=== PATIENT | female | born 1990 | race Hispanic/Latino ===

== ENCOUNTER 2017-05-30 18:58 | Emergency (ER) | payer OTHER ==
[~2017-05-30] VITALS: Ht 170.2 cm; Wt 68.0 kg
[~2017-05-30 18:58] MED LIST: CYCLOBENZAPRINE10 M1 PO; CYMBALTA20 M1 PO; DELTASONE20 MG PO; TRAMADOL HCL50 M1 PO; ULTRAM50 M1 PO; XANAX0.25 M1 PO
--- NOTE | 2017-05-30 21:31 | ED GENERAL ADULT ---
History of Present Illness General Chief Complaint: General Adult Stated Complaint: LOCK JAW? Source: patient, old records Exam Limitations: no limitations Vital Signs & Intake/Output Vital Signs & Intake/Output Vital Signs Date Time Temp Pulse Resp B/P B/P Pulse O2 O2 Flow FiO2 Mean Ox Delivery Rate 05/30 2104 112 22 138/74 98 Room Air 05/30 1903 97.1 92 18 122/87 96 Room Air Allergies Coded Allergies: lidocaine (Mild, ITCHING 03/30/17) fentanyl (ANAPHYLAXIS 03/30/17) ketorolac (From TORADOL) (ANAPHYLAXIS 03/30/17) Reconcile Medications Alprazolam (Xanax) 0.25 MG TABLET 1 TAB PO DAILY NEEDED ANXIETY (Reported) Cyclobenzaprine HCl 10 MG TABLET 1 TAB PO QPM muscle strain Duloxetine Hydrochloride (Cymbalta) 20 MG CAPSULE.DR 1 CAP PO DAILY DEPRESSION (Reported) Methocarbamol (Robaxin-750) 750 MG TABLET 1 TAB PO TID PRN PAIN Prednisone (Deltasone) 20 MG TABLET 2 TAB PO DAILY JAW PAIN BEGIN TOMORROW Tramadol HCl (Ultram) 50 MG TABLET 1 TAB PO Q6P PRN PAIN Tramadol HCl (Ultram) 50 MG TABLET 1 TAB PO BIDP PRN jaw pain Tramadol HCl 50 MG TABLET 1 TAB PO BIDP PRN pain Triage Note: PT FROM HOME C/O "LOCK JAW" PER PT. PT STATES 1 HR PRIOR TO ARRIVAL PT WAS EATING AT HOME WHEN PTS JAW "LOCKED UP". PT ARRIVED TO ER CRYING, JAW OPEN WITH AN ICE PACK ON IT. PT DENIES ANY OTHER COMPLAINTS AT THIS TIME. PT SEEN IN ER 4+ TIMES WITHIN THE PAST 2 MONTHS FOR SAME THING. VSS. Triage Nurses Notes Reviewed? yes Onset: Abrupt Duration: minute(s): (30), constant, continues in ED, getting worse Timing: recent history Injury Environment: home Severity: moderate, severe Severity Numbers: 10 No Modifying Factors: none LMP (ages 10-50): unknown : No Patient currently breastfeeds: No HPI: 27-year-old female past medical history of TMJ anxiety fibromyalgia and lupus presents for evaluation of dislocated TMJ. Patient has been seen here multiple times with this over the past 4 months. She states that about 30 minutes ago she was eating she'll mature mouth wide when she suddenly felt her jaw pop out of place. She reports severe pain on the bilateral TMJs. There is no trauma. Patient has been seen here in the past and required sedation for this. She denies any shortness of breath difficulty swallowing drooling chest pain fever. She has not yet seen an oral surgeon but states that she has an appointment later this month. (Jude Jimenez) Past History Travel History Traveled to [place] past 21 day No Medical History Any Pertinent Medical History? see below for history Neurological: NONE EENT: NONE Cardiovascular: NONE Respiratory: NONE Gastrointestinal: NONE Hepatic: NONE Renal: nephrolithiasis Musculoskeletal: fibromyalgia, rheumatoid arthritis Psychiatric: anxiety Endocrine: LUPUS Blood Disorders: NONE Cancer(s): NONE COP WINDER/Reproductive: chlamydia Surgical History Surgical History: cholecystectomy, tubal ligation Psychosocial History What is your primary language Sudanese Tobacco Use: Current Daily Use Daily Tobacco Use Amount/Type: => 5 Cigarettes daily Family History Hx Contributory? No (Jude Jimenez) Review of Systems Review of Systems Constitutional: Reports: no symptoms. EENTM: Reports: no symptoms. Respiratory: Reports: no symptoms. Cardiovascular: Reports: no symptoms. GI: Reports: no symptoms. Genitourinary: Reports: no symptoms. Musculoskeletal: Reports: joint pain, joint swelling. Skin: Reports: no symptoms. Neurological/Psychological: Reports: anxiety. Hematologic/Endocrine: Reports: no symptoms. Immunologic/Allergic: Reports: no symptoms. All Other Systems: Reviewed and Negative (Jude Jimenez) Physical Exam Physical Exam General Appearance: well developed/nourished, alert, awake, anxious, moderate distress, thin Head: atraumatic, normal appearance Eyes: Bilateral: normal appearance, PERRL, EOMI. Ears, Nose, Throat: normal pharynx, normal ENT inspection, hearing grossly normal, the jaw is open. Patient has severe pain with palpation of the bilateral TMJs. She is unable to close her jaw. The TMJ appears dislocated. There is no crepitus bruising or gross deformity. No bruising swelling or abrasions Neck: normal inspection, supple, full range of motion, no midline tenderness Respiratory: normal breath sounds, chest non-tender, no respiratory distress, lungs clear Cardiovascular: regular rate/rhythm, normal peripheral pulses Peripheral Pulses: 2+ radial (R), 2+ radial (L) Gastrointestinal: normal bowel sounds, soft, non-tender, no organomegaly Back: normal inspection, normal range of motion, no vertebral tenderness Extremities: normal inspection, normal range of motion, no edema Neurologic/Psych: no motor/sensory deficits, awake, alert, oriented x 3, normal gait Skin: intact, normal color, warm/dry Lymphatic: no anterior cervical geetha Core Measures ACS in differential dx? No CVA/TIA Diagnosis: No Sepsis Present: No Sepsis Focused Exam Completed? No (Valeriano TYSON,Jude) Progress Differential Diagnoses I considered the following diagnoses in my evaluation of the patient: [tmj, tmj dislocaton, fracture drug seeking ] Plan of Care: Current Medications Sig/Ivette Start time Last Medication Dose Stop Time Status Admin Ondansetron HCl 4 MG ONCE ONE 05/30 2229 UNVr (Zofran) 05/30 2230 Ondansetron HCl 4 MG ONCE ONE 05/30 2229 UNVr (Zofran) 05/30 2230 Sodium Chloride 1,000 ML BOLUS ONE 05/30 2229 UNVr (Normal Saline 0.9%) 05/30 2328 Sodium Chloride 1,000 ML BOLUS ONE 05/30 2229 UNVr (Normal Saline 0.9%) 05/30 2328 Diphenhydramine HCl 50 MG ONCE ONE 05/30 2114 CAN (Benadryl) 05/30 2115 pt seen and evaluated. her tmj appears dislocated. she has been seen here multiple times for this. she required sedation on 3 seperate occasions last visit to put the tmj back in place. Patient was medicated with morphine and Ativan without any improvement in putting the jaw back in place. It was determined that patient will require conscious sedation. There was no trauma so imaging was not obtained. Patient was monitored on telemetry and oxygen saturation. Dr. Lowe was present in the room at all times during the sedation. Patient was given another 2 mg of Ativan and 10 mg of etomidate. As soon as patient was sedated the jaw went back in place without any manipulation. Patient did vomit upon waking up. No evidence that she aspirated. She was treated with Zofran and fluids. Patient was instructed to not talk. She repeatedly kept talking on her phone and reported that she yawned causing her jaw to come out for a second time. I went back into reevaluate her and I noticed that she was able to move her jaw I encouraged her to close her mouth and she was able to reduce the dislocation on her own. I suspect the patient is able to relocate her jaw. Drug-seeking behavior should be considered in the future. Advised patient that we will no longer be sedating her if her jaw comes out today. Advised her to avoid opening her mouth excessively eating chewy foods or yawning. Follow-up with oral surgeon as soon as possible Tylenol ibuprofen for pain. Monitor symptoms return with any concerns. Patient appears chronically well and agrees the plan. Case discussed with Dr. Lowe. Dr. Lowe saw the patient she agrees. Initial ED EKG: none (Jude Jimenez) Departure Departure Disposition: HOME OR SELF CARE Condition: Stable Clinical Impression Primary Impression: TMJ dislocation Qualifiers: Encounter type: subsequent encounter Qualified Code: S03.00XD - Dislocation of jaw, unspecified side, subsequent encounter Referrals: [facility],Jude Narayanan (PCP/Family) Additional Instructions: Follow-up with your oral surgeon as soon as possible. Avoid excessive opening of her jaw and she will be foods. Tylenol ibuprofen for pain and return with any concerns. Departure Forms: Customer Survey General Discharge Information Prescriptions: Current Visit Scripts Methocarbamol (Robaxin-750) 1 TAB PO TID PRN PAIN #20 TAB (Jude Jimenez) PA/[employer]UMP[employer] Co-Sign Statement Statement: ED Attending supervision documentation- [X] I saw and evaluated the patient. I have also reviewed all the pertinent lab results and diagnostic results. I agree with the findings and the plan of care as documented in the PA's/[employer] JUMP[employer]ST[employer]'s documentation. [X] I have reviewed the ED Record and agree with the PA's/[employer] JUMP[employer]ST[employer]'s documentation. [] Additions or exceptions (if any) to the PAs/[employer] JUMP[employer]ST[employer]'s note and plan are summarized below: [] (Chrissy LANE,Crystal) Procedures Joint Reduction Joint Reduction Site: TMJ Conscious Sedation: conscious sedation, performed by me (AND DR LOWE ) Reduction Attempts: 1 Pre-Procedure NV Exam: Yes Post-Procedure NV Exam: Yes Post Joint Reduction Film: joint reduced Procedural Sedation Sedation Type: moderate Indication: TMJ DISLOCATION Prior Complications: procedural sedation Airway: normal anatomy Mallampati Classification: Class 1 Preparation: plan explained to patient, hospital consent signed, oximetry during procedure, IV access obtained, suction immediately avail, quality assurance monitor body used Sedation: etomidate (10MG) Complications During/After Procedure: vomiting Post Sedation Score: see sedation record I personally performed: sedation Intra-Service Time: 30 minutes or less Progress: Patient vomited after was reduced. No evidence of aspiration or hypoxia. No coughing or shortness of breath. She'll continue to be monitored. (Jude Jimenez) Critical Care Note Critical Care Note Critical Care Time: non-applicable (Jude Jimenez)
[2017-05-30] MEDS ORDERED: ROBAXIN-750750 M1 PO (22:47)
[2017-05-30 22:50] VITALS: BP 138/70
== END 2017-05-30 23:17 ==
LOC: ERH 18:58
DX: S03.03XA Dislocation of jaw, bilateral, initial encounter (principal); X58.XXXA Exposure to other specified factors, initial encounter; Y92.9 Unspecified place or not applicable; Y93.9 Activity, unspecified
CPT/HCPCS: 96374; 96375; 96376; J2405

== ENCOUNTER 2017-12-08 20:09 | Emergency (ER) | payer OTHER ==
[~2017-12-08 20:09] MED LIST changes: +BACLOFEN10 M1 PO; +BACTRIM DS TAB1 EACH PO; +ROBAXIN-750750 M1 PO; +TYLENOL WITH C1 EACH PO
[2017-12-08 20:12] VITALS: BP 117/86
--- NOTE | 2017-12-08 21:24 | RADIOLOGY REPORT ---
EXAMINATION: XR MANDIBLE CLINICAL INFORMATION: Jaw dislocation. Unable to close mouth. COMPARISON: Mandibular radiography 05/07/2017. TECHNIQUE: 2 views of the mandible were obtained. FINDINGS/IMPRESSION: No discrete fracture demonstrated. On the lateral view, at least one mandibular condyle appears to be positioned anteriorly to the mandibular fossa, suggesting mandibular dislocation (see abad image). The other mandibular fossa is not well delineated.
--- NOTE | 2017-12-08 22:00 | ED GENERAL ADULT ---
History of Present Illness General Chief Complaint: General Adult Stated Complaint: "LOCKJAW" PER PT Source: patient, old records Exam Limitations: no limitations Vital Signs & Intake/Output Vital Signs & Intake/Output Vital Signs Date Time Temp Pulse Resp B/P B/P Pulse O2 O2 Flow FiO2 Mean Ox Delivery Rate 12/09 2047 Room Air 12/09 2011 97.6 80 20 117/86 98 Room Air Allergies Coded Allergies: lidocaine (Mild, ITCHING 11/22/17) fentanyl (ANAPHYLAXIS 11/22/17) ketorolac (From TORADOL) (ANAPHYLAXIS 11/22/17) Reconcile Medications Alprazolam (Xanax) 0.25 MG TABLET 1 TAB PO DAILY NEEDED ANXIETY (Reported) Baclofen 10 MG TABLET 1 TAB PO TIDPRN PRN muscle spasm/strain Cyclobenzaprine HCl 10 MG TABLET 1 TAB PO QPM muscle strain Duloxetine Hydrochloride (Cymbalta) 20 MG CAPSULE.DR 1 CAP PO DAILY DEPRESSION (Reported) Hydrocodone/Acetaminophen (Vicodin 5-300 MG Tablet) 5 MG-300 MG TABLET 1 TAB PO BID jaw pain Methocarbamol (Robaxin-750) 750 MG TABLET 1 TAB PO TID PRN PAIN Prednisone (Deltasone) 20 MG TABLET 2 TAB PO DAILY JAW PAIN BEGIN TOMORROW Sulfamethoxazole/Trimethoprim (Bactrim Ds Tablet) 800 MG-160 MG TABLET 1 TAB PO BID UTI Tramadol HCl (Ultram) 50 MG TABLET 1 TAB PO Q6P PRN PAIN Tramadol HCl (Ultram) 50 MG TABLET 1 TAB PO BIDP PRN jaw pain Tramadol HCl (Ultram) 50 MG TABLET 1-2 TAB PO Q6P PRN severe pain Tramadol HCl 50 MG TABLET 1 TAB PO BIDP PRN pain Tylenol With Codeine (Tylenol With Codeine #3 Tablet) 300 MG-30 MG TABLET 1 TAB PO TID PRN PAIN TEN...[id number] Triage Note: PT TO TRIAGE WITH "STEPHANIE," X4-5 HRS. PER PT HX OF. PT VISIBLY UNCOMFORTABLE IN TRIAGE, SHAKING, CRYING AND MOANING IN PAIN. 02 SAT 98%. NO RESP DISTRESS NOTED. Triage Nurses Notes Reviewed? yes : No Patient currently breastfeeds: No HPI: This is a 27-year-old female with history of lupus, anxiety, frequent ER visit for jaw dislocation who presents unable to close her mouth after yawning widely this evening. She denies any other inciting trauma, complaints. Past History Travel History Traveled to [place] past 21 day No Medical History Any Pertinent Medical History? see below for history Neurological: SEIZURES? 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 No Review of Systems Review of Systems Constitutional: Reports: no symptoms. EENTM: Reports: see HPI. All Other Systems: Reviewed and Negative Physical Exam Physical Exam General Appearance: well developed/nourished, no apparent distress, alert, anxious Head: atraumatic, normal appearance Eyes: Bilateral: normal appearance. Neck: normal inspection, supple, full range of motion Respiratory: chest non-tender, no respiratory distress, lungs clear Cardiovascular: regular rate/rhythm, normal peripheral pulses Gastrointestinal: soft, non-tender Rectal: deferred Back: normal inspection, normal range of motion Extremities: normal inspection, normal capillary refill, normal range of motion Neurologic/Psych: awake, alert Comments: Anxious, uncomfortable appearing young woman, no acute distress. Unable to close jaw. Core Measures ACS in differential dx? No CVA/TIA Diagnosis: No Sepsis Present: No Sepsis Focused Exam Completed? No Progress Differential Diagnoses I considered the following diagnoses in my evaluation of the patient: Jaw dislocation, mild concern for fracture although seems highly unlikely given mechanism. Could be malingering given prior history. Plan of Care: Current Medications Sig/Ivette Start time Last Medication Dose Stop Time Status Admin Non-Formulary See Dose SEE ADMIN CRITERIA 12/08 2129 CAN Medication Insts (1) (NON FORMULARY) Dose Instructions: (1)Non-Formulary Medication (NON FORMULARY): dispense 100mg of propofol Laboratory Tests 12/08/17 2233: Troponin I Cancelled Patient is placed under conscious sedation following consent process, administered 60 mg of propofol after being placed on the monitor with active capnography, airway equipment at bedside, suction available, vital signs monitored. Following initiation of propofol, the jaw spontaneously relocates. Patient does not require reduction. Patient regains consciousness without complication. Upon regaining consciousness she complains of pain. She is administered 1 p.o. Vicodin. Patient becomes very rude with staff, throwing things in her room, yelling obscenities. She is discharged home with short course of p.o. pain medication. She is given discharge instructions verbally but refuses to take her written discharge instructions. Initial ED EKG: none Departure Departure Time of Disposition: 2305 Disposition: HOME OR SELF CARE Condition: Stable Clinical Impression Primary Impression: Dislocation of mandible Referrals: [facility] ,Jude Narayanan (PCP/Family) Additional Instructions: Given coming to [place] emergency department today. Please avoid opening her mouth widely for the next few days. Please follow-up with primary doctor as we discussed. Take the pain medication as prescribed. Please return the emergency department if you have any new or worsening symptoms. Departure Forms: Customer Survey General Discharge Information Prescriptions: Current Visit Scripts Hydrocodone/Acetaminophen (Vicodin 5-300 MG Tablet) 1 TAB PO BID #10 TAB Critical Care Note Critical Care Note Critical Care Time: non-applicable
[2017-12-08] MEDS ORDERED: VICODIN 5-3001 EACH PO (22:29)
== END 2017-12-08 22:33 ==
LOC: ERH 20:09
DX: S03.00XA Dislocation of jaw, unspecified side, initial encounter (principal); X58.XXXA Exposure to other specified factors, initial encounter
CPT/HCPCS: 70100; 96374

== ENCOUNTER 2017-12-22 23:08 | Emergency (ER) | payer OTHER ==
[~2017-12-22 23:08] MED LIST changes: +VICODIN 5-3001 EACH PO
--- NOTE | 2017-12-23 00:25 | ED GENERAL ADULT ---
History of Present Illness General Chief Complaint: General Adult Stated Complaint: PT C/O "LOCK JAW" SEEN HERE FOR SAME HX OF Source: patient Exam Limitations: clinical condition Vital Signs & Intake/Output Vital Signs & Intake/Output Vital Signs Date Time Temp Pulse Resp B/P B/P Pulse O2 O2 Flow FiO2 Mean Ox Delivery Rate 12/23 0310 84 18 124/60 100 Room Air 12/23 0236 97.8 94 16 146/90 99 Room Air 12/23 0010 98.1 109 18 135/88 95 Allergies Coded Allergies: lidocaine (Mild, ITCHING 12/23/17) fentanyl (ANAPHYLAXIS 12/23/17) ketorolac (From TORADOL) (ANAPHYLAXIS 12/23/17) Reconcile Medications Alprazolam (Xanax) 0.25 MG TABLET 1 TAB PO DAILY NEEDED ANXIETY (Reported) Baclofen 10 MG TABLET 1 TAB PO TIDPRN PRN muscle spasm/strain Cyclobenzaprine HCl 10 MG TABLET 1 TAB PO QPM muscle strain Duloxetine Hydrochloride (Cymbalta) 20 MG CAPSULE.DR 1 CAP PO DAILY DEPRESSION (Reported) Hydrocodone/Acetaminophen (Vicodin 5-300 MG Tablet) 5 MG-300 MG TABLET 1 TAB PO BID jaw pain Methocarbamol (Robaxin-750) 750 MG TABLET 1 TAB PO TID PRN PAIN Prednisone (Deltasone) 20 MG TABLET 2 TAB PO DAILY JAW PAIN BEGIN TOMORROW Sulfamethoxazole/Trimethoprim (Bactrim Ds Tablet) 800 MG-160 MG TABLET 1 TAB PO BID UTI Tramadol HCl (Ultram) 50 MG TABLET 1 TAB PO Q6P PRN PAIN Tramadol HCl (Ultram) 50 MG TABLET 1 TAB PO BIDP PRN jaw pain Tramadol HCl (Ultram) 50 MG TABLET 1-2 TAB PO Q6P PRN severe pain Tramadol HCl 50 MG TABLET 1 TAB PO BIDP PRN pain Tylenol With Codeine (Tylenol With Codeine #3 Tablet) 300 MG-30 MG TABLET 1 TAB PO BIDP PRN PAIN Tylenol With Codeine (Tylenol With Codeine #3 Tablet) 300 MG-30 MG TABLET 1 TAB PO TID PRN PAIN TEN...[id number] Triage Note: TRIAGE: PATIENT TO ER FROM HOME W/ LOCK JAW, HX OF SAME REQUIRING CONSCIOUS SEDATION. PATIENT ABLE TO SPEAK MINIMALLY, +DISCOMFORT W/ SPEECH. HOLDING JAW W/ CLOTH AT THIS TIME. ONSET 1 HOUR AGO. Triage Nurses Notes Reviewed? yes Onset: Abrupt Duration: hour(s): Timing: recent history : No Patient currently breastfeeds: No HPI: jaw dislocation 27-year-old female presents to the emergency department for dislocated jaw She is had multiple prior episodes of the same She stated that her jaw dislocated several hours ago and that she's having ongoing pain and is unable to reduce it She said her last meal was more than 6 hours prior to arrival She is requesting pain medication IV line was started Consent was obtained verbally for moderate sedation The patient was placed on a monitor and oxygen. She was given 15 mg of etomidate Her jaw immediately reduced. She was observed on the monitor. She woke and was awake alert and oriented 3. Ambulating without difficulty. She did vomit up clear fluid immediately after waking from sedation. She was suctioned and she was informed of this. Past History Travel History Traveled to [place] past 21 day No Medical History Any Pertinent Medical History? see below for history Neurological: SEIZURES? 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 No Review of Systems Review of Systems Constitutional: Denies: fever. EENTM: Denies: visual changes. Respiratory: Denies: short of breath. Cardiovascular: Denies: chest pain. GI: Denies: abdominal pain. Genitourinary: Reports: no symptoms. Musculoskeletal: Reports: see HPI. Skin: Denies: rash. Neurological/Psychological: Reports: no symptoms. Hematologic/Endocrine: Reports: no symptoms. Immunologic/Allergic: Reports: no symptoms. Physical Exam Physical Exam General Appearance: alert, awake, anxious, moderate distress Head: mouth open Eyes: Bilateral: normal appearance, PERRL, EOMI. Ears, Nose, Throat: normal pharynx Neck: supple Respiratory: no respiratory distress Cardiovascular: regular rate/rhythm Peripheral Pulses: 4+ radial (R), 4+ radial (L) Gastrointestinal: non-tender Back: normal range of motion Extremities: normal inspection, normal range of motion, no edema Neurologic/Psych: no motor/sensory deficits, awake, alert, oriented x 3, normal gait Skin: intact, normal color, warm/dry Core Measures ACS in differential dx? No CVA/TIA Diagnosis: No Sepsis Present: No Sepsis Focused Exam Completed? No Progress Differential Diagnoses I considered the following diagnoses in my evaluation of the patient: [Jaw dislocation, opiate dependency,] Plan of Care: Follow-up with ENT this week, Initial ED EKG: none Departure Departure Disposition: HOME OR SELF CARE Condition: Stable Clinical Impression Primary Impression: Jaw dislocation Referrals: [facility] ,Jude Narayanan (PCP/Family) Departure Forms: Customer Survey General Discharge Information Prescriptions: Current Visit Scripts Tylenol With Codeine (Tylenol With Codeine #3 Tablet) 1 TAB PO BIDP PRN PAIN #6 TAB Comments The patient was observed for an hour after the procedure and was awake alert oriented 3 without having any difficulties. She did request pain medication. I attempted to call 6 Tylenol and codeine tablets and for her to [facility]. I was informed that she recently picked up prescriptions for tramadol and Xanax. Critical Care Note Critical Care Note Critical Care Time: 30-74 min
[2017-12-23] MEDS ORDERED: TYLENOL WITH C1 EACH PO (03:05)
[2017-12-23 03:10] VITALS: BP 124/60
== END 2017-12-23 03:09 ==
LOC: ERH 23:08
DX: S03.00XA Dislocation of jaw, unspecified side, initial encounter (principal); X58.XXXA Exposure to other specified factors, initial encounter; Y92.9 Unspecified place or not applicable; Y93.9 Activity, unspecified
CPT/HCPCS: 96374; 96375; J0131; J1885

== ENCOUNTER 2017-12-25 12:05 | Emergency (ER) | payer OTHER ==
[~2017-12-25] VITALS: Ht 170.2 cm; Wt 70.3 kg
[2017-12-25 12:14] VITALS: BP 119/75
[2017-12-25 13:00] LABS: ABSOLUTE BASOPHIL COUNT 0 /CUMM (0.0-0.2); ABSOLUTE EOSINOPHIL COUNT 0.1 /CUMM (0.0-0.7); ABSOLUTE GRANULOCYTE CT 4.5 /CUMM (1.4-6.5); ABSOLUTE LYMPH COUNT 1.7 /CUMM (1.2-3.4); ABSOLUTE MONOCYTE COUNT 0.2 /CUMM (0.10-0.60); BASOPHIL % 0.5 % (0.0-2.0); EOSINOPHIL % 1.1 % (0-5); GRANULOCYTE % 68.5 % (42.2-75.2); HEMATOCRIT 40.1 % (37-47); MEAN CORPUSCULAR HGB 29.1 PG (27.0-31.0); MEAN CORPUSCULAR HGB CONC 33.3 G/DL (33.0-37.0); MEAN CORPUSCULAR VOLUME 87.5 FL (81.0-99.0); MEAN PLATELET VOLUME 7.6 FL (7.4-10.4); PLATELET COUNT 220 /CUMM (130-400); RBC DISTRIBUTION WIDTH 13.8 % (11.5-14.5); RED BLOOD CELL CT 4.59 /CUMM (4.20-5.40); WHITE BLOOD CELL COUNT 6.6 /CUMM (4.8-10.8)
--- NOTE | 2017-12-25 14:24 | ED GI/GU/ABDOMINAL COMPLAINT ---
History of Present Illness General Chief Complaint: Abdominal Pain/Flank Pain Stated Complaint: ABD PAIN Source: patient, old records Exam Limitations: no limitations Vital Signs & Intake/Output Vital Signs & Intake/Output Vital Signs Date Time Temp Pulse Resp B/P B/P Pulse O2 O2 Flow FiO2 Mean Ox Delivery Rate 12/25 1214 97.9 113 20 119/75 97 Room Air Allergies Coded Allergies: lidocaine (Mild, ITCHING 12/23/17) fentanyl (ANAPHYLAXIS 12/23/17) ketorolac (From TORADOL) (ANAPHYLAXIS 12/23/17) Reconcile Medications Alprazolam (Xanax) 0.25 MG TABLET 1 TAB PO DAILY NEEDED ANXIETY (Reported) Duloxetine Hydrochloride (Cymbalta) 20 MG CAPSULE.DR 1 CAP PO DAILY DEPRESSION (Reported) Tramadol HCl (Ultram) 50 MG TABLET 1-2 TAB PO Q6P PRN severe pain Tylenol With Codeine (Tylenol With Codeine #3 Tablet) 300 MG-30 MG TABLET 1 TAB PO Q6P PRN pain Triage Note: PT TO ED C/O "UNCONTROLLABLE BOWELS" SINCE LAST NIGHT. C/O ABD CRAMPING THIS AM. STATES HER STOOLS THIS AM WERE BLACK AND THEN RED. STATES SHE HAS BEEN INCONTINENT OF STOOL. DENIES N/V, DENIES S/S. Triage Nurses Notes Reviewed? yes ? N Is pt currently ? No HPI: Patient woke up this 30 morning and felt like she had to PE but while she was walking to the bathroom very dark watery stool just came out. She states that this happened one more time yesterday and then happened again this morning. Since this morning's episode she has had sharp stabbing pain in her bilateral lower quadrants. The pain is constant. There is no radiation. There are no aggravating or mitigating factors. She denies any nausea or vomiting. She states that she had the 2 episodes of diarrhea yesterday and one episode this morning. Past History Travel History Traveled to [place] past 21 day No Medical History Any Pertinent Medical History? see below for history Neurological: SEIZURES? EENT: NONE Cardiovascular: NONE Respiratory: NONE Gastrointestinal: NONE Hepatic: NONE Renal: nephrolithiasis Musculoskeletal: fibromyalgia, rheumatoid arthritis Psychiatric: anxiety Endocrine: LUPUS Blood Disorders: NONE Cancer(s): NONE RIVET FLUNKY/Reproductive: chlamydia Surgical History Surgical History: cholecystectomy, tubal ligation Psychosocial History What is your primary language Bhutanese Tobacco Use: Current Daily Use Daily Tobacco Use Amount/Type: => 5 Cigarettes daily ETOH Use: denies use Illicit Drug Use: denies illicit drug use Family History Hx Contributory? No Review of Systems Review of Systems Constitutional: Reports: no symptoms. EENTM: Reports: no symptoms. Respiratory: Reports: no symptoms. Cardiovascular: Reports: no symptoms. GI: Reports: see HPI, abdominal pain, diarrhea. Genitourinary: Reports: no symptoms. Musculoskeletal: Reports: no symptoms. Skin: Reports: no symptoms. Neurological/Psychological: Reports: no symptoms. Hematologic/Endocrine: Reports: no symptoms. Immunologic/Allergic: Reports: no symptoms. All Other Systems: Reviewed and Negative Physical Exam Physical Exam General Appearance: well developed/nourished, alert, awake, mild distress Head: atraumatic, normal appearance Eyes: Bilateral: PERRL, EOMI. Ears, Nose, Throat, Mouth: hearing grossly normal, moist mucous membrane Neck: normal inspection, supple, full range of motion Respiratory: normal breath sounds, chest non-tender, no respiratory distress, lungs clear Cardiovascular: regular rate/rhythm, normal peripheral pulses Gastrointestinal: normal bowel sounds, soft, no organomegaly, tenderness Back: normal inspection, normal range of motion Extremities: normal range of motion Neurologic/Psych: no motor/sensory deficits, awake, alert, oriented x 3, normal gait, normal mood/affect Skin: intact, normal color, warm/dry Core Measures ACS in differential dx? No Sepsis Present: No Sepsis Focused Exam Completed? No Progress Differential Diagnosis: appendicitis, colon cancer, diverticulitis, ischemic bowel, inflamm bowel dis Plan of Care: Orders Procedure Date/time Status LACTIC ACID 12/25 1516 Active URINALYSIS 12/25 1216 Complete LIPASE 12/25 1216 Complete LACTIC ACID 12/25 1216 Complete HUMAN BETA HCG SCREEN 12/25 1216 Complete COMPREHENSIVE METABOLIC PANEL 12/25 1216 Complete CBC WITHOUT DIFFERENTIAL 12/25 1216 Complete Laboratory Tests 12/25/17 1256: Urine Color BRADEN, Urine Clarity TURBD H, Urine pH 7.0, Ur Specific Brule 1.020, Urine Protein 30 H, Urine Ketones TRACE H, Urine Nitrite POS H, Urine Bilirubin POS@ICTO H, Urine Urobilinogen 2.0 H, Ur Leukocyte Esterase LARGE H , Ur Microscopic SEDIMENT EXAMINED, Urine RBC 1-3, Urine WBC RARE, Ur Epithelial Cells MOD H, Urine Bacteria MANY H, Micro UA Comment MORE INFO: H, Urine Hemoglobin SMALL H, Urine Glucose NEG 12/25/17 1252: Anion Gap 10, Estimated GFR > 60, BUN/Creatinine Ratio 12.0, Glucose 112 H, Lactic Acid 2.4 H, Calcium 9.8, Total Bilirubin 0.2, AST 25, ALT 35, Alkaline Phosphatase 87, Total Protein 7.1, Albumin 4.1, Globulin 3.0, Albumin/Globulin Ratio 1.4, Lipase 82, Total Beta HCG NEGATIVE, CBC w Diff NO MAN DIFF REQ, RBC 4.59, MCV 87.5, MCH 29.1, MCHC 33.3, RDW 13.8, MPV 7.6, Gran % 68.5, Lymphocytes % 26.5, Monocytes % 3.4, Eosinophils % 1.1, Basophils % 0.5, Absolute Granulocytes 4.5, Absolute Lymphocytes 1.7, Absolute Monocytes 0.2, Absolute Eosinophils 0.1, Absolute Basophils 0 Diagnostic Imaging: Viewed by Me: CT Scan. Discussed w/RAD: CT Scan. Radiology Impression: no acute abnormality Initial ED EKG: none Comments: Patient cannot wait for the CAT scan results. She states that there is no emergency that she needs to care. Patient promises to return for any concerns. Departure Departure Disposition: HOME OR SELF CARE Condition: Stable Clinical Impression Primary Impression: Lower abdominal pain, unspecified Referrals: [facility] ,Jude Narayanan (PCP/Family) Additional Instructions: Return if symptoms worsen or for any other concerns. I will call you if the CAT scan shows any abnormalities. Departure Forms: Customer Survey General Discharge Information Prescriptions: Current Visit Scripts Tylenol With Codeine (Tylenol With Codeine #3 Tablet) 1 TAB PO Q6P PRN pain #12 TAB
[2017-12-25] MEDS ORDERED: TYLENOL WITH C1 EACH PO (15:20)
--- NOTE | 2017-12-25 15:20 | CT SCAN REPORT ---
EXAMINATION: CT ABDOMEN AND PELVIS WITH CONTRAST CLINICAL INFORMATION: Lower abdominal pain. COMPARISON: 04/06/2017. TECHNIQUE: Contiguous axial thin section helical images of the abdomen and pelvis were performed following the administration of 95 mL of intravenous Optiray 320. The data set was reformatted in the coronal and sagittal planes and reviewed on an independent workstation. DLP: 281 mGy-cm. FINDINGS: The visualized lung bases are clear. The visualized portions of the heart are unremarkable. The liver is of normal size and attenuation without focal lesions nor intrahepatic biliary ductal dilation. The patient is status post cholecystectomy. Surgical clips are identified. The spleen, pancreas, adrenal glands are unremarkable. Both kidneys are of normal size and attenuation without hydronephrosis or nephrolithiasis. Following the administration of IV contrast, prompt symmetric nephrograms are displayed. There is no abdominal free fluid. There is neither mesenteric nor retroperitoneal lymphadenopathy. Normal unopacified loops of small and large bowel are identified. A normal appendix is identified. There is no pelvic free fluid. The urinary bladder is unremarkable. There is neither pelvic nor inguinal lymphadenopathy. Bone windows: Neither sclerotic nor lytic bone lesions are identified. IMPRESSION: No evidence for acute abdominal or pelvic inflammatory or infectious processes.
== END 2017-12-25 15:24 ==
LOC: ERH 12:05
PROVIDERS: Physician Assistant Medical
DX: R10.32 Left lower quadrant pain (principal); R10.31 Right lower quadrant pain
CPT/HCPCS: 74177; 81001; 96374